=== PATIENT | female | born 1955 | race African-American/Black ===

== ENCOUNTER → 2017-03-11 | Outpatient (CLI) | payer MEDICARE ==
[2017-03-11 14:14] LABS: Uric Acid 9.3 mg/dL (2.6-6.0)
== END | disposition home or self-care (01) ==
LOC: LAB 13:01
PROVIDERS: ATTEND Surgery
DX: M25.50 Pain in unspecified joint (principal)
CPT/HCPCS: 36415; 84550; 85652; 86141